=== PATIENT | male | born 1950 | race Caucasian/White ===

== ENCOUNTER → 2018-10-10 | Outpatient (CLI) | payer MEDICARE, OTHER ==
[~2018-10-10] MED LIST: ASCO500 PO; ASPI81CH PO; ATEN25 PO; BUDE200IP; DULO30; FISH1000 PO; Flomax0.4 MG PO; GINKGO BILOBA30 MG PO; GREEN TEA PO; Ginseng100 MG PO; LISHYD2025 PO; METF500 PO; MULVITMIND PO; Norco 5-325 Ta1 EACH PO; POTCIT5 PO; Saw Palmetto80 MG PO; TERA5 PO; TRIHYD253B PO; Ventolin/Prove6.7 GM; Zofran Odt4 MG SL
[2018-10-10 12:06] LABS: Microalbumin, Random Urine 20.1 mg/L (0.000-20.000)
== END | disposition home or self-care (01) ==
LOC: LAB 08:43 → LAB SHORT 08:43
PROVIDERS: Nurse Practitioner Family
DX: E11.9 Type 2 diabetes mellitus without complications (principal)
CPT/HCPCS: 82043; 82570

== ENCOUNTER → 2019-05-01 | Outpatient (CLI) | payer MEDICARE, OTHER ==
[~2019-05-01] MED LIST changes: +HYDR1TAB94 PO; +PIOG15 PO; +Prinivil10 MG PO; +Voltaren100 GM TOP
[2019-05-02 14:24] LABS: Stool Occult Bld Immuno 1 Positive (NEGATIVE)
== END | disposition home or self-care (01) ==
LOC: LAB SHORT 15:55 → LAB 15:55
PROVIDERS: Nurse Practitioner Family
DX: Z12.11 Encounter for screening for malignant neoplasm of colon (principal)
CPT/HCPCS: G0328

== ENCOUNTER 2019-08-01 09:53 | Day surgery (SDC) | payer MEDICARE, OTHER ==
[~2019-08-01] VITALS: Ht 180.3 cm; Wt 185.7 kg
[~2019-08-01 09:53] MED LIST changes: +ATOR40TA PO; +BUDE6HFA INH; -DULO30; +DULO30 PO; -FISH1000 PO; +Fish Oil PO; +Hair, Skin & N1 EACH PO; +METO25 PO; -MULVITMIND PO; -Ventolin/Prove6.7 GM; +Ventolin/Prove6.7 GM INH
--- NOTE | 2019-08-01 10:55 | NUR ---
History, Chart, Medications and Allergies reviewed before start of procedure. Patient confirms NPO status and agrees with scheduled surgery. Patient States Post-Procedure ride home has been arranged with his friend, Fran Muñoz.
[2019-08-01] MEDS ORDERED: TAMS.4ER PO (11:09)
[2019-08-01] MEDS ORDERED: Aspir 8181 MG PO (11:09)
--- NOTE | 2019-08-01 11:18 | NUR ---
MILD INSP. WHEEZING ASCULATED TO UPPER LOBES BILAT, ANTERIOR AND POSTERIOR PRIOR TO DUO NEB.
--- NOTE | 2019-08-01 13:58 | NUR ---
Discharge instructions reviewed with patient. Patient verbalizes understanding. Copy given to patient to take home. Discharged via wheelchair to private car for ride home.
== END 2019-08-01 13:59 | disposition home or self-care (01) ==
LOC: ORSCMMR 09:53 → ORD 11:30 → ORSCMMR 11:30
PROVIDERS: Internal Medicine Gastroenterology
PROC: 0DBM8ZX Excision of Descending Colon, Via Natural or Artificial Opening Endoscopic, Diagnostic (ICD-10-PCS; principal; 2019-08-01 11:30)
PROC: 0DBK8ZX Excision of Ascending Colon, Via Natural or Artificial Opening Endoscopic, Diagnostic (ICD-10-PCS; principal; 2019-08-01 11:30)
DX: K92.1 Melena (principal); D12.2 Benign neoplasm of ascending colon; D12.4 Benign neoplasm of descending colon; I10 Essential (primary) hypertension; E78.5 Hyperlipidemia, unspecified; G47.33 Obstructive sleep apnea (adult) (pediatric); E11.9 Type 2 diabetes mellitus without complications; E66.01 Morbid (severe) obesity due to excess calories; Z68.43 Body mass index [BMI] 50.0-59.9, adult; I25.2 Old myocardial infarction; J45.909 Unspecified asthma, uncomplicated; Z79.899 Other long term (current) drug therapy; Z79.82 Long term (current) use of aspirin; K57.30 Diverticulosis of large intestine without perforation or abscess without bleeding; K64.8 Other hemorrhoids
CPT/HCPCS: 82947; 88305; J2250; J2704; J7120

== ENCOUNTER → 2020-11-27 | Outpatient (CLI) | payer MEDICARE, OTHER ==
[~2020-11-27] MED LIST changes: +Aspir 8181 MG PO; +TAMS.4ER PO
[2020-12-13 19:08] LABS: BRUSHITE 0.29 ratio (0.00-3.00); CALCIUM OXALATE 11.36 ratio (0.00-6.00); CALCIUM, URINE 3.5 mg/dL (Not Estab.); CHLORIDE URINE 166 (110-250); CITRIC ACID (CITRATE) 46 mg/L (Not Estab.); CITRIC ACID(CITRATE) 92 mg/24 hr (320-1240); CREATININE, URINE 104.5 mg/dL (Not Estab.); MAGNESIUM, URINE 4.3 mg/dL (Not Estab.); MONOSODIUM URATE 3.05 ratio (0.00-4.00); OSMOLALITY, URINE 530 (300-900); SODIUM, URINE 106 mmol/L (Not Estab.); SODIUM, URINE 212 (58-337); STRUVITE 0.01 ratio (0.00-1.00); URIC ACID 2.28 ratio (0.00-1.20); URINE VOLUME 2000 mL/24 hr (800-1800); URINE VOLUME (PRESERVATIVE) 2000 mL/24 hr (800-1800)
== END | disposition home or self-care (01) ==
LOC: LAB SHORT 11:00 → PLD 11:00
PROVIDERS: Urology
DX: N20.0 Calculus of kidney (principal)
CPT/HCPCS: 81003; 81050; 82131; 82140; 82340; 82436; 82507; 82570; 83735; 83935; 83945; 84105; 84133; 84300; 84392; 84560